=== PATIENT | male | born 1975 | race African-American/Black ===

== ENCOUNTER 2019-01-14 12:05 | Emergency (ER) | payer SELFPAY ==
--- NOTE | 2019-01-14 12:52 | EDM.PDOC ---
ED HPI GENERAL MEDICAL PROBLEM - General Chief Complaint: Skin Complaint Stated Complaint: BUMP ON BOTTOM Time Seen by Provider: 01/14/19 12:35 - History of Present Illness INITIAL COMMENTS - FREE TEXT/NARRATIVE: HISTORY AND PHYSICAL: History of present illness: The patient is a 43-year-old male who presents with a history of being a vegetarian for quite a long period of time and then starting to eat red meat and other non-vegetarian type foods and presents with new problems with having bowel movements and pain and a bump on his anal area. He says that he is having difficulty with his bowel movements over the last 2 weeks and his last bowel movement was 2 days ago and it was small and hard. He says he has to force to have bowel movements with this new diet and he is in the process of changing back. He's had no bleeding from the rectum no abdominal pain fevers chills nausea or vomiting. Not using any [id number] meds. Review of systems: As per history of present illness and below otherwise all systems reviewed and negative. Past medical history: As per history of present illness and as reviewed below otherwise noncontributory. Surgical history: As per history of present illness and as reviewed below otherwise noncontributory. Social history: No reported history of drug or alcohol abuse. Family history: As per history of present illness and as reviewed below otherwise noncontributory. Physical exam: General: Well-developed well-nourished thin man who is nontoxic and vital signs are noted by me HEENT: Atraumatic, normocephalic, negative for conjunctival pallor or scleral icterus, mucous membranes moist, throat clear, neck supple, nontender, trachea midline. Lungs: Clear to auscultation, breath sounds equal bilaterally, chest nontender. Heart: S1S2, regular rate and rhythm no overt murmurs Abdomen: Soft, nondistended, nontender. Negative for masses or hepatosplenomegaly. Negative for costovertebral tenderness. Pelvis: Stable nontender. Genitourinary: Deferred. Rectal: There is no tenderness soft tissue swelling or erythema of the buttocks and there is normal tone at the anus. There are no fissures seen no stool leakage or active bleeding seen. At the 9:00 lithotomy position there is a small 1-1.5 cm ovoid hemorrhoid seen which is soft but tender to palpation with no surrounding erythema. It is not tense or grossly thrombosed and there is no leakage of blood. Extremities: Atraumatic, negative for cords or calf pain. Neurovascular unremarkable. Neuro: Awake, alert, oriented. Cranial nerves II through XII unremarkable. Cerebellum unremarkable. Motor and sensory unremarkable throughout. Exam nonfocal. Diagnostics: [] Therapeutics: The patient drove himself here I discussed with the patient that pharmacies are closed today for the holiday but I will give him a prescription for a specific cream that he can begin using that will shrink the hemorrhoids tomorrow. I will give him some pain medication here for home and advised [id number] Colace duration and other behavioral changes that will help him in the interim. Impression: External hemorrhoid Definitive disposition and diagnosis as appropriate pending reevaluation and review of above. rectum Pain Score (Numeric/FACES): 9 - Related Data Allergies Allergy/AdvReac Type Severity Reaction Status Date / Time No Known Allergies Allergy Verified 11/17/13 10:57 Home Meds: Home Meds . [No Known Home Meds] 01/14/19 [History] Past Medical History Gastrointestinal History: Reports: Diverticulosis Other Gastrointestinal History: diverticulitis Other Endocrine/Metabolic History: hyperhydrosis( excessive sweating) Social & Family History - Family History Family Medical History: Noncontributory - Tobacco Use Smoking Status *Q: Never Smoker - Recreational Drug Use Recreational Drug Use: No ED ROS GENERAL - Review of Systems Review Of Systems: ROS reveals no pertinent complaints other than HPI. ED EXAM, SKIN/RASH Exam: See Below (See dictation) Course - Vital Signs Last Recorded V/S: Last Vital Signs Temp Pulse 71 01/14/19 12:22 Resp 16 01/14/19 12:22 BP 124/94 H 01/14/19 12:22 Pulse Ox 97 01/14/19 12:22 Departure - Departure Time of Disposition: 12:52 Disposition: Home, Self-Care 01 Condition: Good Clinical Impression: External hemorrhoid - Discharge Information Referrals: PCP,None [Primary Care Provider] - Additional Instructions: The following information is given to patients seen in the emergency department who are being discharged to home. This information is to outline your options for follow-up care. We provide all patients seen in our emergency department with a follow-up referral. The need for follow-up, as well as the timing and circumstances, are variable depending upon the specifics of your emergency department visit. If you don't have a primary care physician on staff, we will provide you with a referral. We always advise you to contact your personal physician following an emergency department visit to inform them of the circumstance of the visit and for follow-up with them and/or the need for any referrals to a consulting specialist. The emergency department will also refer you to a specialist when appropriate. This referral assures that you have the opportunity for followup care with a specialist. All of these measure are taken in an effort to provide you with optimal care, which includes your followup. Under all circumstances we always encourage you to contact your private physician who remains a resource for coordinating your care. When calling for followup care, please make the office aware that this follow-up is from your recent emergency room visit. If for any reason you are refused follow-up, please contact the [facility] emergency department at and ask to speak to the emergency department charge nurse. [facility] [address] [place] [id number] Please to not force bowel movements and did not sit on the toilet for any prolonged periods of time as this will increase pain and swelling to the hemorrhoid. Please fill your prescription is given to you when pharmacies open first thing in the morning and begin her treatment. In the interim you may use the pain medication you have been prescribed from [facility] as well as over-the -counter ibuprofen. He may also use any [id number] preps such as Preparation H to the area as you choose until you get your prescription tomorrow. Push hydration increase fiber in your diet and start [id number] Colace 100 mg twice a day for the next 2 weeks. Return to ER as needed and as discussed
== END 2019-01-14 13:14 | disposition home or self-care (01) ==
LOC: MW.ED 12:05
DX: K64.4 Residual hemorrhoidal skin tags (principal)
CPT/HCPCS: 99282

== ENCOUNTER 2022-09-01 07:32 | Emergency (ER) | payer SELFPAY ==
[2022-09-01 08:23] LABS: CORONAVIRUS COVID-19 NAA NEGATIVE (NEGATIVE); INFLUENZA A NAA NEGATIVE (NEGATIVE); INFLUENZA B NAA NEGATIVE (NEGATIVE)
== END 2022-09-01 08:01 | disposition home or self-care (01) ==
LOC: MW.ED 07:32
DX: H66.93 Otitis media, unspecified, bilateral (principal); Z20.822 Contact with and (suspected) exposure to COVID-19
CPT/HCPCS: 0240U; 99283